=== PATIENT | male | born 1990 | race African-American/Black ===

== ENCOUNTER 2017-10-11 14:13 | Emergency (ER) | payer SELFPAY ==
[~2017-10-11] VITALS: Ht 175.3 cm; Wt 66.0 kg
[2017-10-11 14:28] VITALS: BP 125/64
== END 2017-10-11 16:42 | disposition left against medical advice (07) ==
LOC: ER 15:32
DX: K08.89 Other specified disorders of teeth and supporting structures (principal); Z53.21 Procedure and treatment not carried out due to patient leaving prior to being seen by health care provider